=== PATIENT | female | born 1930 | race African-American/Black ===

== ENCOUNTER 2017-06-17 01:20 | Inpatient (IN) | payer OTHER ==
[2017-06-17] VITALS (8 sets, daily range): BP systolic 104–133; BP diastolic 46–65
[~2017-06-17] VITALS: Ht 172.7 cm; Wt 87.1 kg
[2017-06-17] MEDS ORDERED: SODIUM CHLORIDE 0.9% 1,000 ML IV ONE (01:39)
[2017-06-17] MEDS ORDERED: PANTOPRAZOLE SODIUM 40 MG/VIAL IV STA (01:39)
[2017-06-17] MEDS ORDERED: ONDANSETRON HCL 4MG/2ML VIAL IV STA (01:39)
[2017-06-17 02:09] LABS: CHLORIDE 108 mEq/L (98-107)
[2017-06-17 02:11] LABS: BASOPHILS % 0.6 % (0.0-2.0); EOSINOPHILS % 0.3 % (0.0-5.0); HEMATOCRIT. 28.4 % (36.0-48.0); HEMOGLOBIN. 9.2 g/dL (12.0-16.0); INR 1.2; LYMPHOCYTES % 34.9 % (20.0-50.0); MEAN CORPUSCULAR HEMOGLOBIN 30.3 pg (28.0-32.0); MEAN CORPUSCULAR VOLUME 93.4 fL (81.0-99.0); MEAN PLATELET VOLUME 8.3 fl (7.4-10.4); MONOCYTES % 7.2 % (2.0-8.0); PARTIAL THROMBOPLASTIN TIME 22.1 sec (23.4-31.0); PLATELET 155 x1000/uL (130-400); PROTHROMBIN TIME 12.6 sec (9.4-11.6); RED BLOOD CELL COUNT 3.04 mill/uL (4.2-5.4); RED CELL DISTRIBUTION WIDTH 14.8 % (11.6-14.6)
[2017-06-17 02:18] LABS: CARBON DIOXIDE 26 mEq/L (21-32)
[2017-06-17] MEDS ORDERED: SODIUM CHLORIDE 0.9% 1,000 ML IV SCH (04:20)
[2017-06-17 04:56] LABS: BASOPHILS % 0.3 % (0.0-2.0); HEMATOCRIT. 26.1 % (36.0-48.0); HEMOGLOBIN. 8.9 g/dL (12.0-16.0); MEAN CORPUSCULAR HEMOGLOBIN 31.4 pg (28.0-32.0); MEAN CORPUSCULAR VOLUME 91.8 fL (81.0-99.0); MEAN PLATELET VOLUME 7.9 fl (7.4-10.4); MONOCYTES % 7.4 % (2.0-8.0); NEUTROPHILS % 81.3 % (40.0-76.0); PLATELET 137 x1000/uL (130-400); RED BLOOD CELL COUNT 2.85 mill/uL (4.2-5.4); RED CELL DISTRIBUTION WIDTH 14.8 % (11.6-14.6)
[2017-06-17] MEDS ORDERED: ONDANSETRON HCL 4MG/2ML VIAL IV PRN (07:00)
[2017-06-17] MEDS: DEXT 5%/0.45% NACL 1000ML 1,000 ML IV SCH ×2 (07:15→09:33)
[2017-06-17] MEDS ORDERED: PANTOPRAZOLE SODIUM 40 MG/VIAL IV SCH ×2 (09:00→21:00)
[2017-06-17] MEDS ORDERED: DEXTROSE 50% WATER 50ML SYRINGE IV PRN (18:45)
[2017-06-18] MEDS ORDERED: BLOOD SUGAR DIAGNOSTIC STRIP TEST SCH
== END 2017-06-17 22:39 | disposition short-term general hospital (02) | DRG 377 ==
LOC: ER 01:20 → 5EST 04:24 → EDBEDREQ 04:25 → EDBEDREQTM 04:25 → ENRESERV 05:00
PROVIDERS: ADMIT Hospitalist; ATTEND Hospitalist
DX: K92.0 Hematemesis (principal); R57.1 Hypovolemic shock; D62 Acute posthemorrhagic anemia; E11.9 Type 2 diabetes mellitus without complications; E88.09 Other disorders of plasma-protein metabolism, not elsewhere classified; I10 Essential (primary) hypertension; M16.11 Unilateral primary osteoarthritis, right hip; K44.9 Diaphragmatic hernia without obstruction or gangrene; E03.9 Hypothyroidism, unspecified; K57.90 Diverticulosis of intestine, part unspecified, without perforation or abscess without bleeding; K21.9 Gastro-esophageal reflux disease without esophagitis; Z88.0 Allergy status to penicillin; Z88.2 Allergy status to sulfonamides; Z90.49 Acquired absence of other specified parts of digestive tract; Z98.51 Tubal ligation status; Z86.73 Personal history of transient ischemic attack (TIA), and cerebral infarction without residual deficits
CPT/HCPCS: 36415; 71010; 80053; 82962; 83690; 83880; 85025; 85610; 85730; 86850; 86900; 96374; 96375; 99291; C9113; J2405; J3490; J7030